=== PATIENT | female | born 1975 | race Caucasian/White ===

== ENCOUNTER 2020-10-14 19:35 | Emergency (ER) | payer OTHER, SELFPAY ==
--- NOTE | ~2020-10-14 | XR_ITS ---
EXAMINATION: XR chest 2V DATE: 10/14/2020 20:07 INDICATION: Left-sided chest pain TECHNIQUE: PA and lateral views of the chest are obtained. COMPARISON: None available FINDINGS: The lungs are free of acute opacities. There is no pleural effusion or pneumothorax. The ca rdiomediastinal silhouette is normal. There is moderate thoracic spondylosis. There are changes of an terior and posterior fusion in the lower cervical spine. IMPRESSION: 1. No acute cardiopulmonary abnormality. Reviewed, dictated and finalized at location A.
--- NOTE | ~2020-10-14 | NM_ITS ---
EXAMINATION: NM pulmonary perfusion DATE: 10/14/2020 23:10 INDICATION: Shortness of breath TECHNIQUE: 4.23 mCi Tc-99m MAA was administered intravenously for perfusion images. Scintigraphic maikel ges of the chest were obtained. COMPARISON: None FINDINGS: Perfusion images show normal perfusion. IMPRESSION: 1. Low probability for pulmonary embolism. Reviewed, dictated and finalized at location A.
--- NOTE | 2020-10-14 19:36 | ECG_ITS ---
Measurements Intervals [place] Rate: 75 P: 44 SD: 176 QRS: -29 QRSD: 80 T: 5 QT: 390 QTc: 436 Interpretive Statements SINUS RHYTHM INCOMPLETE RIGHT BUNDLE BRANCH BLOCK DELAYED PRECORDIAL R/S TRANSITION BASELINE ARTIFACT- V1 BORDERLINE ECG Electronically Signed On 10-15-2020 6:46:45 CDT by Destin Calle D.O.
[2020-10-14 19:37] VITALS: BP 127/74; PULSE 78; RESP 18; TEMP 36.6; O2SAT 97
--- NOTE | 2020-10-14 19:52 | ED.CHESTPAIN ---
HPI - Chest Pain General Chief Complaint: Chest Pain Stated Complaint: chest pain Time Seen by Provider: 10/14/20 19:46 Source: patient Mode of arrival: ambulatory Limitations: no limitations History of Present Illness HPI narrative: Patient is a 45-year-old female complaining of chest pain, left chest wall, sharp, radiating to left arm, 6 out of 10, intermittent that started today. Patient denies any shortness of breath, abdominal pain, diaphoresis, fever, chills or nausea vomiting. Related Data Allergies Allergy/AdvReac Type Severity Reaction Status Date / Time Iodinated Contrast Media Allergy Severe Anaphylactic Verified 10/14/20 20:25 Shock Penicillins Allergy Unknown ??? Verified 10/14/20 20:25 ione Allergy Anaphylactic Verified 10/14/20 20:25 Shock Review of Systems Review of Systems: All systems reviewed & are unremarkable except as noted in HPI and below Constitutional: Constitutional: Denies body ache(s), Denies chills, Denies excessive sweating, Denies fatigue, Denies fever(s), Denies headache(s), Denies lethargy, Denies malaise, Denies weakness and Denies weight loss Eyes: Eyes: Denies blurry vision, Denies change in vision and Denies loss of vision ENT: Denies dizziness, Denies ear discharge, Denies headache(s), Denies lip swelling, Denies epistaxis, Denies nasal congestion, Denies neck pain, Denies throat swelling and Denies tongue swelling Cardiovascular: Cardiovascular: Denies diaphoresis, Denies rapid heart rate, Denies edema, Denies irregular heart rhythm, Denies lightheadedness, Denies palpitations, Denies dyspnea and Denies dyspnea on exertion Respiratory: Respiratory: Denies chest congestion, Denies cough, Denies hemoptysis, Denies dyspnea and Denies dyspnea on exertion Gastrointestinal: Gastrointestinal: Denies abdominal pain, Denies melena, Denies hematochezia, Denies diarrhea, Denies nausea, Denies vomiting and Denies hematemesis Musculoskeletal: Musculoskeletal: Denies abnormal gait, Denies deformity, Denies joint swelling, Denies limited range of motion, Denies neck pain and Denies numbness Neurologic: Denies Abnormal speech present, Denies abnormal gait, Denies confusion, Denies dizziness, Denies headache(s), Denies focal weakness, Denies loss of vision, Denies numbness, Denies Other visual disturbances, Denies Sensory deficit (Neuro) and Denies weakness Psychiatric: Psychiatric: Denies confusion, Denies depression, Denies auditory hallucinations, Denies homicidal ideation and Denies suicidal ideation Endocrine: Endocrine: Denies cold intolerance, Denies excessive sweating, Denies fatigue, Denies heat intolerance and Denies palpitations Hematologic/Lymphatic: Hematologic/Lymphatic: Denies easy bleeding and Denies easy bruising Allergic/Immunologic: Allergic/Immunologic: Denies lip swelling, Denies throat swelling and Denies tongue swelling PMFSH Comments Past medical history: None Social history non-smoker no EtOH or drug use Family history negative for SD Exam Const: General: cooperative, healthy appearing, comfortable, no acute distress, well developed, alert and awake; No confusion Orientation/consciousness: oriented to person, oriented to place, oriented to time, patient oriented x3 and No confusion Limitations: no limitations HENMT: Head: normal to inspection, normocephalic and atraumatic Ears: hearing grossly normal bilaterally, TM normal on the right and TM normal on the left General nose exam: Normal external nose present, Normal nares present and No nasal discharge present Face and sinus: normal facial exam Mouth: Yes Normal oral and palatal mucosa present, Yes lip normal, Yes tongue normal and Yes oropharynx normal Throat: posterior oropharynx normal, tonsils normal and uvula midline Eyes: General: appearance normal, both eyes and all related structures Pupils: Equal, round and reactive pupils present EOM: EOMs intact bilaterally Neck: Neck: normal visual inspection, full ROM
[2020-10-14 20:19] VITALS: O2SAT 97
--- NOTE | 2020-10-14 20:21 | PC.NURSE ---
Pt presents to ED with complaints of chest pain that has been intermittent since this morning while at work. Pt states pain last less than 5 minutes at at time and dull, sometimes sharp. Pain has subsided at this time and states when it is present it is rated 3/10. 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 Pt states dizziness onsets with chest pain. Pt noted to be alert and oriented x4 at this time with stable vitals and is in no obvious distress at this time. Call button and personal items within reach. Advised to press call button for assistance. Family member present at bedside.
[2020-10-14] MEDS: ASPIRIN 81 MG CHEWABLE TABLET 324 MG PO (20:27)
--- NOTE | 2020-10-14 20:27 | PC.NURSE ---
Pt denies cardiac hx and similar episodes in the past. Pt admits to hx of anxiety attack and states outside of pain radiating down left arm, symptoms are the same.
[2020-10-14 20:36] LABS: Partial Thromboplastin Time 37.5 SECONDS (22.3-36.8); Prothrombin Time 13.6 Seconds (11.1-14.7)
[2020-10-14 20:36] LABS: Anion Gap 8 mmol/L (8-16); Blood Urea Nitrogen 17 mg/dL (7-17); Calcium 9.2 mg/dL (8.4-10.2); Carbon Dioxide 26 mmol/L (22-30); Chloride 103 mmol/L (98-107); Estimated CRCL calculation 79 ml/min; Estimated Glomerular Filt Rate > 60; Glucose 174 mg/dL (65-105); Potassium 3.6 mmol/L (3.4-5.0); Sodium 137 mmol/L (137-145)
[2020-10-14 20:39] LABS: D Dimer 1.44 ug/mL (<0.48)
[2020-10-14 20:48] LABS: Troponin I < 0.012 ng/mL (0.000-0.034)
--- NOTE | 2020-10-14 21:41 | PC.NURSE ---
Pt resting on cart with no complaints or concerns voiced at this time. vitals remain stable and pt in no obvious distress at this time. Spouse remains at bedside. Pt advised to press call button for assistance.
--- NOTE | 2020-10-14 23:11 | PC.NURSE ---
Pt to and from radiology and is now back in room resting on cart in its lowest position with call button and personal items within reach. Family member remains at bedside.
[2020-10-14 23:16] VITALS: BP 153/63; PULSE 66; RESP 18; O2SAT 97
[2020-10-15 00:30] LABS: Troponin I < 0.012 ng/mL (0.000-0.034)
[2020-10-15 00:58] VITALS: BP 146/77; PULSE 79; RESP 19; TEMP 36.6; O2SAT 100
--- NOTE | 2020-10-15 00:58 | PC.NURSE ---
EDMD presented to bedside to update pt on poc. All questions and concerns addressed.
[2020-10-15 01:00] VITALS: BP 146/77; PULSE 79; RESP 19; TEMP 36.6; O2SAT 100
--- NOTE | 2020-10-15 14:23 | ECG_ITS ---
Measurements Intervals [place] Rate: 66 P: 52 [place]: 187 QRS: -6 QRSD: 103 T: 13 QT: 407 QTc: 427 Interpretive Statements SINUS RHYTHM DELAYED PRECORDIAL R/S TRANSITION BORDERLINE ECG Electronically Signed On 10-15-2020 16:00:43 CDT by Destin Calle D.O.
== END 2020-10-15 01:01 | disposition home or self-care (01) ==
PROVIDERS: Emergency Provider Emergency Medicine; PCP Internal Medicine
DX: R07.89 Other chest pain (principal)
CPT/HCPCS: 36415; 71046; 78580; 80048; 84484; 85380; 85610; 85730; 93005; 99284; A9270; A9540

== ENCOUNTER 2021-04-06 17:35 | Emergency (ER) | payer OTHER, SELFPAY ==
[2021-04-06 17:52] VITALS: BP 145/99; PULSE 107; RESP 16; TEMP 36.1; O2SAT 96
[2021-04-06 18:18] LABS: Basophils Percent Auto 0.6 % (0.2-1.2); Eosinophils Percent Auto 0.8 % (0-4.4); Hematocrit 52.4 % (37.0-47.0); Hemoglobin 16.8 g/dL (12.0-15.0); Immature Granulocyte Absolute 0.07 K/mm3 (0.00-0.031); Immature Granulocyte Percent A 1.5 % (0-0.5); Lymphocytes Absolute Auto 1.82 K/mm3 (0.9-3.2); Lymphocytes Percent Auto 38.2 % (18.3-44.2); Mean Corpuscular HGB Conc 32.1 g/dl (32-36); Mean Corpuscular Hemoglobin 29.1 pg (26-34); Mean Corpuscular Volume 90.8 fl (80-100); Mean Platelet Volume 9.2 fl (7.4-10.4); Monocytes Absolute Auto 0.4 K/mm3 (0.1-0.6); Monocytes Percent Auto 8.6 % (2.6-8.5); Neutrophils Absolute Auto 2.4 K/mm3 (1.3-6.7); Neutrophils Percent Auto 50.3 % (45.5-73.1); Platelet Count Result 171 k/mm3 (150-375); Red Blood Count 5.77 M/mm3 (4.2-5.4); Red Cell Distribution Width 14.2 % (11.5-14.5); White Blood Count 4.8 K/mm3 (4.5-10.0)
[2021-04-06 18:28] LABS: Alanine Aminotransferase 47 U/L (4-35); Albumin Level 4.6 g/dL (3.5-5.1); Alkaline Phosphatase 108 U/L (38-126); Anion Gap 7 mmol/L (8-16); Aspartate Amino Transferase 51 U/L (14-36); Bilirubin,Total 0.4 mg/dL (0.2-1.3); Blood Urea Nitrogen 15 mg/dL (7-17); Calcium 9.1 mg/dL (8.4-10.2); Carbon Dioxide 29 mmol/L (22-30); Chloride 101 mmol/L (98-107); Estimated CRCL calculation 80 ml/min; Estimated Glomerular Filt Rate > 60; Glucose 139 mg/dL (65-110); Potassium 4.3 mmol/L (3.4-5.0); Sodium 137 mmol/L (137-145)
--- NOTE | 2021-04-06 19:29 | PC.NURSE ---
pt declining 2 hour vital check. pt states she is hot and wants to leave. pt ambulatory out main doors.
== END 2021-04-06 19:29 | disposition left against medical advice (07) ==
LOC: ANHED 19:35
PROVIDERS: Emergency Provider Emergency Medicine; PCP Internal Medicine
DX: R53.1 Weakness (principal)
CPT/HCPCS: 36415; 80053; 85025; 99199

== ENCOUNTER 2023-03-04 17:44 | Emergency (ER) | payer OTHER, SELFPAY ==
--- NOTE | ~2023-03-04 | CT_ITS ---
EXAMINATION: CT abdomen pelvis wo con DATE: 03/04/2023 18:26 INDICATION: Right lower quadrant abdominal pain. TECHNIQUE: Computed tomography (CT) of the abdomen and pelvis was performed without intravenous contr ast. Automated exposure control and iterative reconstruction technique were employed. The dose-length product was 1303.21 mGy-cm. COMPARISON: None. FINDINGS: The visualized portions of the lung bases posteriorly mild atelectasis. No pleural effusion . The heart size is normal. No pericardial effusion. There are 5 masses in the liver measuring up to 3.1 cm. The gallbladder, spleen, pancreas, and adrenal glands are normal. There are cysts in the kidn eys measuring up to 2.0 cm on the left. There is a 2 mm stone in right kidney. There is a 3.1 cm uter ine fibroid. There are no dilated loops of bowel. The appendix is normal. There are no pathologically enlarged lymph nodes. There is no free intraperitoneal fluid. There is mild aortic atherosclerosis. There are benign bone islands in the pelvis. There is moderate thoracic and lumbar spondylosis. IMPRESSION: 1. Liver masses measuring up to 3.1 cm, which may be metastatic disease or benign masses such as navin ngiomas. Abdomen MRI without and with contrast is recommended. Reviewed, dictated and finalized at location E. IMPRESSION: 1. Liver masses measuring up to 3.1 cm, which may be metastatic disease or dorothy gn masses such as hemangiomas. Abdomen MRI without and with contrast is recomme nded.
[2023-03-04 17:47] VITALS: BP 142/62; PULSE 67; RESP 17; TEMP 36.4; O2SAT 100
--- NOTE | 2023-03-04 18:03 | ED.ABDPAIN ---
HPI - Abdominal Pain General Chief Complaint: Abdominal Pain Stated Complaint: right flank pain Time Seen by Provider: 03/04/23 17:49 Source: patient and family Mode of arrival: ambulatory Limitations: no limitations History of Present Illness HPI narrative: patient is a pleasant 47 year old female who states she has a past medical history of back pain/sciatica who presents to the ED today ambulatory with a steady gait for evaluation of pain to the right side of her abdomen/flank region that goes to the lower aspect of her abdomen that is been going on about 6 months. She states that it is intermittent and nothing makes it better or worse. She states at the last few days it is felt worse. she had nausea last night without vomiting but states it was due to the pain. She denies any fever, chills, constipation, diarrhea, blood in her urine, abnormal vaginal bleeding, pelvic pain, chest pain, shortness a breath, dizziness, numbness or tingling to bilateral lower extremities. Patient states just does not feel like her chronic low back pain with sciatic pain. Related Data Allergies Allergy/AdvReac Type Severity Reaction Status Date / Time Iodinated Contrast Media Allergy Severe Anaphylactic Verified 03/04/23 18:27 Shock Penicillins Allergy Unknown ??? Verified 03/04/23 18:27 [place] Allergy Anaphylactic Verified 03/04/23 18:27 Shock Review of Systems Review of Systems: CONSTITUTIONAL: Denies fever, chills, or sweats. EYES: Denies visual changes, redness, or discharge. ENT: Denies rhinorrhea, congestion, sore throat, or otalgia. CARDIOVASCULAR: Denies chest pain, palpitations, or edema. RESPIRATORY: Denies cough or dyspnea. GASTROINTESTINAL: right lateral side abdomen to RLQ abdominal pain for 6 months. nausea last night from pain. GENITOURINARY: Denies dysuria or hematuria. SKIN: Denies rash or itching. MUSCULOSKELETAL: Denies back pain, joint pain, or myalgia. NEUROLOGIC: Denies headache, numbness, or weakness. PSYCHIATRIC: Denies anxiety or depression. All systems reviewed & are unremarkable except as noted in HPI and below Exam Narrative: GENERAL: Well-appearing,obese, well-nourished, and in no acute distress. HEAD: Normocephalic, atraumatic. EYES: PERRLA and EOMI. ENT: Nares clear, no rhinorrhea or epistaxis. Mucous membranes moist. NECK: Supple. CHEST: Clear to auscultation. No respiratory distress. HEART: Regular rate and rhythm. No murmur heard. Normal peripheral pulses. ABDOMEN: Soft, normal active bowel sounds. No right sided CVA tenderness noted. there is tenderness to the right lateral aspect of abdomen that radiates to right lower abdomen. no rebound or /guarding noted. EXTREMITIES: Normal range of motion. No edema. BACK: full ROM noted. no swelling. no erythema/rash. negative lumbar step-off sign without any tenderness. SKIN: Warm, dry, no rash. NEURO: No focal deficits. Alert and oriented x3. CN II-XII grossly intact PSYCH: Normal mood and affect. Course Vital Signs Vital signs: Vital Signs Temperature 97.5 F L 03/04/23 17:47 Pulse Rate 67 03/04/23 17:47 Respiratory Rate 17 03/04/23 17:47 Blood Pressure 142/62 H 03/04/23 17:47 Pulse Oximetry 100 03/04/23 17:47 Oxygen Delivery Room Air 03/04/23 17:47 Temperature 97.5 F L 03/04/23 17:47 Pulse Rate 61 03/04/23 19:47 Respiratory Rate 18 03/04/23 19:47 Blood Pressure 161/66 H 03/04/23 19:47 Pulse Oximetry 100 03/04/23 19:47 Oxygen Delivery Room Air 03/04/23 17:47 MDM - Abdominal Pain MDM Narrative Medical decision making narrative: presents for pain to right side/abdomen for about 6 months worse last few days. no prior studies noted in system. will obtain labs and imaging. allergy to contrast so will obtain without. she is in no distress. no fever, tachycardia, or toxic findings. patient's lab without emergent findings. CT abdomen pelvis notes no acute emergent finding however there are abno
--- NOTE | 2023-03-04 18:37 | PC.NURSE ---
Per verbal order, ketorolac is okay to give IM due to being unable to obtain IV.
[2023-03-04] MEDS: KETOROLAC 15 MG/ML VIAL (*BKC) IV PUSH (18:39)
[2023-03-04 18:42] LABS: Appearance Urine Clear (Clear); Basophils Percent Auto 0.5 % (0.2-1.2); Bilirubin Urine Negative (Negative); Blood Urine Negative (Negative); Color Urine Yellow (Yellow); Eosinophils Absolute Auto 0.2 K/mm3 (0-0.3); Eosinophils Percent Auto 2.8 % (0-4.4); Glucose Urine UA Negative (Negative); Hematocrit 44.4 % (37.0-47.0); Hemoglobin 14.3 g/dL (12.0-15.0); Immature Granulocyte Absolute 0.09 K/mm3 (0.00-0.031); Immature Granulocyte Percent A 1.2 % (0-0.5); Ketones Urine Negative (Negative); Leukocyte Esterase Ur Negative LEU/UL (Negative); Lymphocytes Absolute Auto 2.63 K/mm3 (0.9-3.2); Lymphocytes Percent Auto 35.3 % (18.3-44.2); Mean Corpuscular HGB Conc 32.2 g/dl (32-36); Mean Corpuscular Hemoglobin 28.3 pg (26-34); Mean Corpuscular Volume 87.9 fl (80-100); Mean Platelet Volume 9.2 fl (7.4-10.4); Monocytes Absolute Auto 0.5 K/mm3 (0.1-0.6); Neutrophils Percent Auto 53.2 % (45.5-73.1); Nitrate Urine Negative (Negative); Platelet Count Result 285 k/mm3 (150-375); Protein Urine Negative (Negative); Red Blood Count 5.05 M/mm3 (4.2-5.4); Red Cell Distribution Width 14.4 % (11.5-14.5); Specific Grav Ur 1.019 (1.001-1.035); Urobilinogen Urine 0.2 mg/dL (<2.0); White Blood Count 7.5 K/mm3 (4.5-10.0); pH Urine 6.5 (5.0-9.0)
[2023-03-04 18:44] LABS: Add Urine Microscopic? NO
[2023-03-04 18:50] LABS: Alanine Aminotransferase 21 U/L (6-35); Albumin Level 4.4 g/dL (3.5-5.1); Alkaline Phosphatase 112 U/L (38-126); Anion Gap 6 mmol/L (8-16); Aspartate Amino Transferase 34 U/L (14-36); Bilirubin,Total 0.5 mg/dL (0.2-1.3); Blood Urea Nitrogen 18 mg/dL (7-17); Calcium 8.9 mg/dL (8.4-10.2); Carbon Dioxide 29 mmol/L (22-30); Chloride 103 mmol/L (98-107); Estimated CRCL calculation 73 ml/min; Estimated Glomerular Filt Rate > 60; Glucose 93 mg/dL (65-110); Lipase 79 U/L (23-300); Potassium 4.1 mmol/L (3.4-5.0); Sodium 138 mmol/L (137-145)
[2023-03-04 19:47] VITALS: BP 161/66; PULSE 61; RESP 18; O2SAT 100
== END 2023-03-04 19:59 | disposition home or self-care (01) ==
PROVIDERS: Emergency Provider Nurse Practitioner; PCP Internal Medicine
DX: D25.9 Leiomyoma of uterus, unspecified (principal); R16.0 Hepatomegaly, not elsewhere classified; N28.1 Cyst of kidney, acquired; N20.0 Calculus of kidney; R03.0 Elevated blood-pressure reading, without diagnosis of hypertension
CPT/HCPCS: 36415; 74176; 80053; 81003; 83690; 85025; 96374; 99284; J1885

== ENCOUNTER 2023-05-16 07:14 | Outpatient (CLI) | payer OTHER, SELFPAY ==
--- NOTE | ~2023-05-16 | NM_ITS ---
EXAMINATION: NM hepatobiliary wo pharm DATE: 05/16/2023 11:36 INDICATION: Abdominal pain, bloating and gastritis COMPARISON: None. TECHNIQUE: 5.029 mCi Tc-99m mebrofenin (Choletec) was administered intravenously. Scintigraphic imag es of the abdomen were obtained for one hour. At the 1 hour time point, the patient drank 8 oz Ensure , and imaging was continued for 60 minutes. Gallbladder ejection fraction was calculated by the techn ologist. FINDINGS: There is normal clearance of radiotracer from the blood pool. There is homogeneous tracer u ptake by the liver. Activity progresses to the bowel and gallbladder. The gallbladder ejection fract ion (GBEF) is 83%. Note that with this technique, normal GBEF >= 33%. IMPRESSION: 1. Normal hepatobiliary scan. Reviewed, dictated and finalized at location A. RAL DUTY NURSE
== END 2023-05-16 07:15 | disposition home or self-care (01) ==
LOC: ANHIMG 07:18
PROVIDERS: PCP Internal Medicine; Visit Provider Internal Medicine Gastroenterology
DX: R10.84 Generalized abdominal pain (principal); R14.0 Abdominal distension (gaseous); R13.10 Dysphagia, unspecified; K29.30 Chronic superficial gastritis without bleeding
CPT/HCPCS: 78226; A9537

== ENCOUNTER 2023-07-12 08:14 | Outpatient (CLI) | payer OTHER, SELFPAY ==
--- NOTE | ~2023-07-12 | XR_ITS ---
EXAMINATION: XR_ENEMABAC_CR DATE: 07/12/2023 09:12 INDICATION: Right abdominal pain. Incomplete colonoscopy. TECHNIQUE: A operations engineer radiograph was obtained. A catheter was inserted into the patient's rectum. Contra st was infused by gravity. Gas was infused by hand pump. Fluoroscopic spot images and conventional ra diographs were obtained. Fluoroscopy exposure time was 0.6 minutes. The total number of images was 46 . COMPARISON: CT abdomen and pelvis 03/04/2023 FINDINGS: There is a benign bone island in left ilium. There is no abnormal mass or stricture. The ap pendix is normal. IMPRESSION: 1. Normal double contrast enema. Reviewed, dictated and finalized at location A. OR DENTIST
== END 2023-07-12 08:15 | disposition home or self-care (01) ==
LOC: ANHIMG 08:15
PROVIDERS: PCP Internal Medicine; Visit Provider Internal Medicine Gastroenterology
DX: Z53.09 Procedure and treatment not carried out because of other contraindication (principal)
CPT/HCPCS: 74280

== ENCOUNTER 2023-07-19 16:41 | Outpatient (CLI) | payer OTHER, SELFPAY ==
--- NOTE | ~2023-07-19 | MR_ITS ---
EXAMINATION: MR abdomen wo con DATE: 07/19/2023 17:39 INDICATION: Liver lesion. TECHNIQUE: Magnetic resonance imaging (MRI) of the abdomen was performed without intravenous contrast . COMPARISON: CT abdomen and pelvis 03/04/2023 FINDINGS: There are greater than 10 masses of increased T2-weighted signal intensity in the liver measuring up to 3.4 cm. At least the larger masses are stable from 03/04/2023. The gallbladder, spleen, pancreas, a nd adrenal glands are normal. There are cysts in the kidneys measuring up to 1.8 cm on the left. Ther e are no dilated loops of bowel. There are no pathologically enlarged lymph nodes. There is no free i ntraperitoneal fluid. IMPRESSION: 1. Liver masses measuring up to 3.4 cm, which may be metastatic disease or benign masses such as navin ngiomas. Abdomen MRI without and with contrast is recommended. Reviewed, dictated and finalized at location E. SUGAR HANDLER IMPRESSION: 1. Liver masses measuring up to 3.4 cm, which may be metastatic disease or dorothy gn masses such as hemangiomas. Abdomen MRI without and with contrast is recomme nded.
== END 2023-07-19 16:42 | disposition home or self-care (01) ==
LOC: ANHIMG 16:41
PROVIDERS: PCP Internal Medicine; Visit Provider Internal Medicine Gastroenterology
DX: K76.89 Other specified diseases of liver (principal)
CPT/HCPCS: 74181

== ENCOUNTER 2025-02-22 08:30 | Outpatient (CLI) | payer OTHER, SELFPAY ==
--- OUTSIDE RECORDS SUMMARY | 2010-03-23 10:00 | XMS_ITS | Continuity of Care Document ---
Author Organization [facility] Address [address] [place] [address] [address] [place] [address] Phone Care Team Providers Care Asbestos Wire Finisher Name Role Phone Jw Kenney Unavailable Unavailable Procedures Procedure Date Office/outpatient Visit, [facility] Advance Directives Directive Yes / No Effective Date File Name No Information Encounters Encounter Description Practice Location Reason(s) For Visit Diagnoses Date Provider Providers Copied on Encounter Office/outpat ient Visit, [facility], [address] [place] [address] [address], [place], [place], [id number], [place] tel:[phone] SEC [facility] No Information [address]. [address] [facility] , [address], [place], [address], [place]. tel:[phone] Family History Family Member Type Diagnosis Age At Onset No Information Payers Payer name Insurance type Covered constitution party ID Authoriza tion(s) Medicaid [facility] [id number] Social History Type Description Quantity Date Captured Comments Sex Female Smoking Status No Information Chief Complaint And Reason For Visit No Information Reason For Referral Reason For Referral No Information History Of Present Illness Encounter Date Complaint History Of Prese nt Illness No Information Functional Status Date Functional Assessmen t No Information Instructions Date Instruction Additional Infor mation No Information Assessments Type Assessment Date No Information Patient Care Teams Name Effective Dates (start - stop) Status Members No Information
--- NOTE | ~2025-02-22 | MMUS_ITS ---
PROCEDURE: MM post biopsy diagnostic RT, US breast biopsy RT w image CLINICAL HISTORY: 49-year-old female with indeterminate right breast mass, presents for ultrasound-guided core needle biopsy procedure. COMPARISON: 01/17/2025 Following informed consent including risks, benefits, and possible complications, the patient was brought to the ultrasound suite. A time-out procedure was performed. A preliminary ultrasound of the right breast was performed, redemonstrating an hypoechoic circumscribed mass identified at 10:00, 3 cm from the nipple. The patient was prepped and draped in the usual sterile fashion. 1% lidocaine was instilled into the subcutaneous tissues. 1% lidocaine without epinephrine was injected into the deep tissues just inferior to the lesion. Approximately 15cc lidocaine was administered. A small skin mary jane was made. Multiple core samples were obtained with a 14-gauge multi pass biopsy needle. A post biopsy butterfly Casscoe Carlos marker was placed at the biopsy site. Postprocedural mammogram of the right breast in craniocaudal and mediolateral projections reveal the post biopsy metal marker in good position. The patient tolerated the procedure well and was without immediate postprocedural complications. IMPRESSION: Successful ultrasound guided biopsy of right breast mass. A post biopsy metal marker was placed at the biopsy site, which is seen on postprocedural mammogram. The patient tolerated the procedure well without immediate postprocedure complications. The patient was given postprocedural instructions and sent home in stable condition. Pathology result pending. Reviewed, dictated and finalized at location B. IMPRESSION: Successful ultrasound guided biopsy of right breast mass. A post bi opsy metal marker was placed at the biopsy site, which is seen on postprocedura l mammogram. The patient tolerated the procedure well without immediate postprocedure compli cations. The patient was given postprocedural instructions and sent home in sta ble condition. Pathology result pending.
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
--- OUTSIDE RECORDS SUMMARY | 2025-02-22 08:34 | XMS_ITS | Encounter Summary ---
Author Organization [facility] Address [address] [place] [address] Phone Care Team Providers Care Composition Roofer Name Role Phone Zack Good MD Primary Care Provider [phone] Luke Cervantes MD Unavailable [phone] Encounter Details Date Type Department Care Team (Latest Contact Info) Description 03/04/2023 Orders Only [facility] Scanning, Provider Social History Tobacco Use Types Packs/Day Years Used Date Smoking Tobacco: Every Day Cigarettes 1 30 Smokeless Tobacco: Never AUDIT-C Answer Date Recorded Q1: How often do you have a drink containing alc ohol? Never 08/25/2021 Average Number of Drinks Not on file 022 Q3: How often do you have si x or more drinks on one occasion? Never 08/25/2021 Comments No Sex and Gender Information Value Date Recorded Sex Assigned at Not on file Legal Sex Female 7:[address] P[address]ER OPERATOR Gender Identity Female 02/22/2024 11:04 AM CDT Sexual Orientation Straight 02/22/2024 11 :04 AM CDT documented as of this encounter Plan of Treatment Not on file documented as of this encounter Procedures Procedure Name Priority Date/Time Associated Diagnosis Comments SCAN - RADIOLOGY/IMAGING 03/04/2023 documented in this encounter Results * SCAN - RADIOLOGY/IMAGING (03/04/2023) Anatomical Region Laterality Modality Other us Provider Scanning Final Result documented in this encounter Visit Diagnoses Not on filedocumented in this encounter Care Teams Composition Roofer Relationship Specialty Start Date End Date Zack Good MD PCP - General Internal Medicine 11/04/20 Luke Cervantes MD [address] [place] [address] Referring Physician Gastroenterology 07/17/21 documented as of this encounter
--- OUTSIDE RECORDS SUMMARY | 2025-02-22 08:34 | XMS_ITS | Encounter Summary ---
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 Gender Identity Female 02/22/2024 11:04 AM CDT Sexual Orientation Straight 02/22/2024 11 :04 AM CDT documented as of this encounter Plan of Treatment Not on file documented as of this encounter Procedures Procedure Name Priority Date/Time Associated Diagnosis Comments SCAN - RADIOLOGY/IMAGING 05/16/2023 documented in this encounter Results * SCAN - RADIOLOGY/IMAGING (05/16/2023) Anatomical Region Laterality Modality Other us Provider Scanning Final Result documented in this encounter Visit Diagnoses Not on filedocumented in this encounter Care Teams Phosphoric Acid Operator Relationship Specialty Start Date End Date Zack Good MD PCP - General Internal Medicine 11/04/20 Luke Cervantes MD [address] [place] [address] Referring Physician Gastroenterology 07/17/21 documented as of this encounter
--- OUTSIDE RECORDS SUMMARY | 2025-02-22 08:34 | XMS_ITS | Encounter Summary ---
Author Organization [facility] Address [address] [place] [address] Phone Care Team Providers Care Cutter In Name Role Phone Zack Good MD Primary Care Provider [phone] Luke Cervantes MD Unavailable [phone] Encounter Details Date Type Department Care Team (Latest Contact Info) Description 07/12/2023 Orders Only [facility] Scanning, Provider [...] more drinks on one occasion? 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 Gender Identity Female 02/22/2024 11:04 AM CDT Sexual Orientation Straight 02/22/2024 11 :04 AM CDT documented as of this encounter Plan of Treatment Not on file documented as of this encounter Procedures Procedure Name Priority Date/Time Associated Diagnosis Comments SCAN - RADIOLOGY/IMAGING 07/12/2023 documented in this encounter Results * SCAN - RADIOLOGY/IMAGING (07/12/2023) Anatomical Region Laterality Modality Other us Provider Scanning Final Result documented in this encounter Visit Diagnoses Not on filedocumented in this encounter Care Teams Cutter In Relationship Specialty Start Date End Date Zack Good MD PCP - General Internal Medicine 11/04/20 Luke Cervantes MD [address] [place] [address] Referring Physician Gastroenterology 07/17/21 documented as of this encounter
--- OUTSIDE RECORDS SUMMARY | 2025-02-22 08:34 | XMS_ITS | Clinical Summary ---
Author Organization [email or web address] Address [address] [place] [address] Care Team Providers Care Tie Hacker Name Role Phone Zakc Good MD Primary Care Provider [phone] Allergies Active Allergy Reactions Criticality Noted Date Comments Gadobenate Dimeglumine Anaphylaxis High 09/12/2017 Iodinated Contrast Media Anaphylaxis High 09/08/2017 Iodine Anaphylaxis High 09/12/2017 [place] Swelling Low 09/08/2017 Nickel Rash Low 09/08/2017 Penicillins Other (See Comments) 09/08/2017 Unknown, childhood reaction (cough syrup) Medications gabapentin (NEURONTIN) 800 mg tablet Take 800 mg by mouth 2 times daily. 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 Active oxyCODONE (ROXICODONE) 5 mg tablet Take 1-2 Tablets (5-10 mg) by mouth every 4 hours as needed for Pain. Max Daily Amount: 60 mg 90 Tablet 09/15/2017 Active diazePAM (VALIUM) 5 mg tablet Take 1 Tablet (5 mg) by mouth every 8 hours as needed for Spasm or Discomfort. 60 Tablet 09/15/2017 Active Active Problems Problem Noted Date Diagnosed Date Cervical stenosis of spine 09/13/2017 Immunizations Immunization Administration Dates Next Due Influenza Seasonal Unspecified Formulation IM Social History Tobacco Use Types Packs/Day Years Used Date Smoking Tobacco: Every Day Cigarettes Smokeless Tobacco: Never Alcohol Use Standard Drinks/Week Comments No 0 (1 standard drink = 0.6 oz pur e alcohol) Comments No Sex and Gender Information Value Date Recorded Sex Assigned at Not on file Legal Sex Female 1:54 PM CDT Gender Identity Not on file Sexual Orientation Not on file Last Filed Vital Signs Vital Sign Reading Time Taken Comments Blood Pressure 125/58 09/16/2017 8:58 AM CDT Pulse 85 09/16/2017 8:58 AM CDT Temperature 36.6 C (97.9 F) 09/16/2017 8:58 AM CDT Respiratory Rate 95 09/16/2017 8:58 AM CDT Oxygen Saturation 91% 09/16/2017 4:53 AM CDT Inhaled Oxygen Concentration - - Weight 102.1 kg (225 lb) 09/14/2017 3:36 AM CDT Height 162.6 cm (5' 4) 09/13/2017 8:44 AM CDT Body Mass Index 38.62 09/13/2017 8:44 AM CDT Plan of Treatment Health Maintenance Due Date Last Done Comments DTAP/TDAP/TD VACCINES (1 - Tdap) 1993 HEPATITIS B VACCINES (1 of 3 - 19+ 3-dose series) 06/30 HPV/Cotest (21-29) 1995 CERVICAL CANCER SCREENING 2004 HPV/Cotest (30-65) 2004 PAP SMEAR 2004 BREAST CANCER SCREENING 2014 COLORECTAL SCREENING 2019 Colorectal Cancer Screening 2019 FIT-DNA Q 3 years 2019 FIT/FOBT Q 1 year 2019 Flex Sig/CT Colonography Q 5 years 2019 ZOSTER VACCINE (1 of 2) 2024 INFLUENZA VACCINE (#1) 2024 07/28/2017 Medical Devices Implanted Type Area Network Lead Device Identifier Shelf Expiration Date Model / Serial / Lot Channing Synapse Crv Ti 3.5x60mm 614.760 - [id number] Implanted:Qt y: 2 on 09/13/2017 by Kashif Luke MD at [facility] Channing SYNTHES-STRATEC - SPINAL 614.76 0 / / Description:all Synthes spin al hardware was processed on requisition,[id number]. Screw Canc Polyaxial 3.5x14mm 614.014 - [id number] Implanted:Qt y: 8 on 09/13/2017 by Kashif Luke MD at [facility] Screw SYNTHES-STRATEC - MAXIFACIAL 4.01 4 / / Screw Synapse Locking 614.508 - [id number] Implanted:Qt y: 8 on 09/13/2017 by Kashif Luke MD at [facility] Screw SYNTHES-STRATEC - SPINAL .614.50 8 / / Sealant Floseal 10ml [id number] - [id number] Implanted:Qt y: 1 on 09/13/2017 by Kashif Luke MD at [facility] Sealant N/A: Spine Cervical Posterior PAL- BIOSCIENCE [id number] 01/31/2019 [id number] / / [id number] Insurance [employer] ACCESS/TRUE BLUE PPO [employer] ACCESS CHOICE Advance Directives For more information, please contact: [phone] * Full Code (Latest Code Status on File) Date Activated Date Inactivated Comments 09/13/2017 3:58 PM 09/16/2017 2:56 PM * Full Code Date Activated Date Inactivated Comments 09/13/2017 9:12 AM 09/13/2017 3:57 PM Care Teams Tie Hacker Relationship Specialty Start Date End Date Zack Good MD [address] [place] [address] PCP - General Internal Medicine 09/06/17
--- OUTSIDE RECORDS SUMMARY | 2025-02-22 08:34 | XMS_ITS ---
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 Past Treatment and Therapy Plans No past plan information found. Lifetime Dose Tracking * Chemical Lifetime Dose Automatic Entry Manual Entr y DLP 4,198 mGycm 4,198 mGycm 0 mGycm
--- OUTSIDE RECORDS SUMMARY | 2025-02-22 08:34 | XMS_ITS | Clinical Summary ---
Author Organization [facility] Address [address] [place] [address] Care Team Providers Care Contractor General Building Name Role Phone Melinda Hand DO Primary Care Provider [phone] Source Comments [facility],non-owned Affiliates and Associated Physician Practices is amultiple site organization consisting of ambulatory clinics and hospital sitesin [place], [place], [place] and [place]. This disclosure is being madepursuant to the Care Everywhere program and may not contain all information available regarding this patient. 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 Gender Identity Not on file Sexual Orientation Not on file Plan of Treatment Health Maintenance Due Date Last Done Comments COLOGUARD (AGES 45-75) - COL ON CA SCREENING 1974 COLON MONITORING 1974 COLONOSCOPY - COLON CA SCREENING 1974 CT COLONOGRAPHY - COLON CA SCREENING 1974 Colorectal Cancer Screening 1974 FIT - COLON CA SCREENING 1974 FLEX SIG - COLON CA SCREENING 1974 LIPID TESTING 1974 MAMMOGRAM 1974 HIV SCREENING 1989 HEPATITIS C SCREENING 07/13/1992 DTAP/TDAP/TD VACCINES (1 - Tdap) 1993 HEPATITIS B VACCINE (1 of 3 - + 3-dose series) 1993 DEPRESSION SCREENING 05/30/2024 PNEUMOCOCCAL VACCINE 50+ (1 of 1 - PCV) 2024 ZOSTER VACCINE (1 of 2) 2024 COVID-19 VACCINE (1 - 2023-2 5 season) 2025 INFLUENZA VACCINE (#1) 2025 HIB VACCINE Aged Out No longer eligi ble based on patient's age to complete this topic HPV VACCINE Aged Out No longer eligi ble based on patient's age to complete this topic MENINGOCOCCAL (Group B) VACC INE SHARED DECISION-MAKING Aged Out No longer eligibl e based on patient's age to complete this topic MENINGOCOCCAL GROUPS A/C/Y/W VACCINE Aged Out No longer eligible b ased on patient's age to complete this topic Insurance ANTH Care Teams Contractor General Building Relationship Specialty Start Date End Date Melinda Hand DO [address] [place] [address] PCP - General Family Medicine 10/18/14
--- OUTSIDE RECORDS SUMMARY | 2025-02-22 08:34 | XMS_ITS | Encounter Summary ---
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 Gender Identity Female 02/22/2024 11:04 AM CDT Sexual Orientation Straight 02/22/2024 11 :04 AM CDT documented as of this encounter Plan of Treatment Not on file documented as of this encounter Procedures Procedure Name Priority Date/Time Associated Diagnosis Comments SCAN - RADIOLOGY/IMAGING 07/19/2023 documented in this encounter Results * SCAN - RADIOLOGY/IMAGING (07/19/2023) Anatomical Region Laterality Modality Other us Provider Scanning Final Result documented in this encounter Visit Diagnoses Not on filedocumented in this encounter Care Teams Dental Office Coordinator Relationship Specialty Start Date End Date Zack Good MD PCP - General Internal Medicine 11/04/20 Luke Cervantes MD [address] [place] [address] Referring Physician Gastroenterology 07/17/21 documented as of this encounter
--- OUTSIDE RECORDS SUMMARY | 2025-02-22 08:34 | XMS_ITS | Clinical Summary ---
Author Organization [facility] Address [address] [place] [address] Care Team Providers Care Assistant Gm Of Content & Delivery Name Role Phone Jamari Velez MD Unavailable Zack Good MD Primary Care Provider [phone] Allergies Active Allergy Reactions Criticality Noted Date Comments Gadobenate Anaphylaxis High 09/12/2017 Iodine Anaphylaxis High 03/02/2019 [place] Oil Anaphylaxis High 03/02/2019 Nickel Rash Low 09/08/2017 Penicillins Rash Low 03/02/2019 Medications gabapentin 800 MG tablet Take 1 tablet (800 mg total) by mouth 2 (two) times daily. 90 tablet 9 Active sertraline 50 MG tablet Take 3 tablets (150 mg total) by mouth daily. 9 Active fenofibrate 145 MG tablet Take 1 tablet (145 mg total) by mouth daily. 30 tablet 9 Active acetaminophen-caffe ine (EXCEDRIN TENSION HEADACHE) 500-65 MG Tab Take 1-2 tablets by mouth every 4 (four) hours as needed. 60 tablet 9 Active methylPREDNISolone, INES, 4 MG tablet 6 TABLETS ON DAY ONE, 5 TABLETS DAY TWO, 4 TABLETS DAY THREE, 3 TABLETS DAY FOUR, 2 TABLETS DAY FIVE, AND 1 TABLET DAY SIX 1 each 1 Active ondansetron 4 MG disintegrating tablet Take 1 tablet (4 mg total) by mouth every 8 (eight) hours as needed for Nausea. 20 tablet 1 Active Active Problems No known active problems Family History Medical History Relation Comments Cancer Maternal Grandfather Heart Disease Mother Cancer Paternal Grandmother Relation Status Comments Brother 1 Alive Brother 2 Alive Father (Age 22) Maternal Grandfather Maternal Grandmother Alive Mother Alive Paternal Grandfather Alive Paternal Grandmother Social History Tobacco Use Types Packs/Day Years Used Date Smoking Tobacco: Every Day Cigarettes 1.5 30 Smokeless Tobacco: Never Alcohol Use Standard Drinks/Week Comments Yes 0 (1 standard drink = 0.6 oz pur e alcohol) beer on occasion AUDIT-C Answer Date Recorded Frequency of Alcohol Consumption Never 03/02/2019 Average Number of Drinks Not on file 019 Frequency of Binge Drinking Not on file 08/2018 Comments No Sex and Gender Information Value Date Recorded Sex Assigned at Not on file Legal Sex Female 9:39 PM CDT Gender Identity Not on file Sexual Orientation Not on file Last Filed Vital Signs Vital Sign Reading Time Taken Comments Blood Pressure 134/77 04/11/2021 11:53 AM FLIGHT ENGINEER Pulse 82 04/11/2021 11:53 AM FLIGHT ENGINEER Temperature 36.7 C (98 F) 04/11/2021 11:53 AM FLIGHT ENGINEER Respiratory Rate 20 04/11/2021 11:53 AM FLIGHT ENGINEER Oxygen Saturation 98% 04/11/2021 11:53 AM FLIGHT ENGINEER Inhaled Oxygen Concentration - - Weight 113.4 kg (250 lb) 04/11/2021 11:53 AM FLIGHT ENGINEER Height 157.5 cm (5' 2) 04/11/2021 11:53 AM FLIGHT ENGINEER Body Mass Index 45.73 04/11/2021 11:53 AM FLIGHT ENGINEER Plan of Treatment Health Maintenance Due Date Last Done Comments Cervical Cancer Screening Pa p Smear (Age 30 to 64) Every 3 Years 1974 Colorectal Cancer Screening Colonoscopy (10 Years) 1974 Annual Physical 1977 Hepatitis C 1992 DTaP, Tdap and Td Vaccines ( 1 - Tdap) 1993 Hepatitis B Vaccines (1 of 3 - 19+ 3-dose series) 1993 Pneumococcal Vaccine: 50+ Ye ars (1 of 2 - PCV) 1993 Cervical Cancer Screening Pa p with HPV Testing (Age 30 to 64) Every 5 Years 2004 Cervical Cancer Screening with HPV 2004 Mammogram Screening 2014 Zoster Vaccines (1 of 2) 2024 COVID-19 Vaccine (2023-2 5 season) 2025 Meningococcal B Vaccine Aged Out No l onger eligible based on patient's age to complete this topic Meningococcal Vaccine Aged Out No vivian anai eligible based on patient's age to complete this topic RSV Immunizations Under 20 Months Aged Out No longer eligible based on patient's age to complete this topic Insurance MISTRY Care Teams Assistant Gm Of Content & Delivery Relationship Specialty Start Date End Date Zack Good MD [address] [facility] [place] [address] PCP - General INTERNAL MEDICINE 02/27/19 Jamari Velez MD [address] [facility] [place], [place] [address] [employer] Housekeeper CARDIOVASCULAR DISEASE 03/06/19
--- NOTE | 2025-02-22 11:28 | S_PTH ---
PATIENT: Essie Chaparro LOC: [facility] U#:[id number] AGE/SX: 49/F ROOM: RE02/22/[address]: Zack GoodMD : 1975 BED: DIS: 02/22/2025 SPEC #: [id number] RECD: 02/22/25 11:42 STATUS: PHYLLIS REWm #: [id number] ROYER: 02/22/25 11:[address]: Latisha,Zack Monk DEPT: [facility] Surgical RECD BY: Jessica Sepulveda ENTERED: 02/22/25 11:42 SP TYPE: Surgical OTHR DR: Tiana Chadwick MD Tissues: A - Breast Biopsy Procedures: Hematoxylin and Eosin Stain Gross and Microscopic Level 4
== END 2025-02-22 08:31 | disposition home or self-care (01) ==
PROVIDERS: PCP Internal Medicine; Visit Provider Internal Medicine
DX: R92.8 Other abnormal and inconclusive findings on diagnostic imaging of breast (principal)
CPT/HCPCS: 19083; 77065; 88305; A4648